=== PATIENT | female | born 1995 | race Hispanic/Latino ===

== ENCOUNTER 2017-02-25 18:36 | Emergency (ER) | payer SELFPAY ==
[2017-02-25 18:43] VITALS: BP 130/71; PULSE 80; RESP 18; TEMP 99.3; O2SAT 99
--- NOTE | 2017-02-25 19:52 | ED PDOC ---
Lower Extremity Pain/Injury Time Seen by Provider: 02/25/17 18:46 Chief Complaint (Nursing): Lower Extremity Problem/Injury Chief Complaint (Provider): foot pain History Per: Patient History/Exam Limitations: no limitations Additional Complaint(s): 21yo F inED for eval of left foot pain x 2 weeks after direct injury against wall now with severe pain worsening with tingling sensation. Past Medical History Reviewed: Historical Data, Nursing Documentation, Vital Signs Vital Signs: Last Vital Signs Temp 99.3 F 02/25/17 18:41 Pulse 80 02/25/17 18:41 Resp 18 02/25/17 18:41 BP 130/71 02/25/17 18:41 Pulse Ox 99 02/25/17 18:41 - Medical History PMH: No Chronic Diseases - Family History Family History: States: No Known Family Hx - Allergies Allergies/Adverse Reactions: Allergies Allergy/AdvReac Type Severity Reaction Status Date / Time honey Allergy SWELLING Verified 02/25/17 18:40 Review of Systems ROS Statement: Except As Marked, All Systems Reviewed And Found Negative Constitutional: Negative for: Fever, Chills Musculoskeletal: Positive for: Foot Pain Physical Exam - Reviewed Nursing Documentation Reviewed: Yes Vital Signs Reviewed: Yes - Physical Exam Appears: Positive for: Well, Non-toxic, No Acute Distress Skin: Positive for: Normal Color, Warm, DRY Cardiovascular/Chest: Positive for: Regular Rate, Rhythm Respiratory: Positive for: CNT, Normal Breath Sounds Extremity: Positive for: Other (left foot: swelling to dorsum tenderness to dorsum good pulses) Neurologic/Psych: Positive for: Alert, Oriented - ECG O2 Sat by Pulse Oximetry: 99 - Radiology X-Ray: Interpreted by Mo X-Ray Interpretation: No Acute Disease Medical Decision Making Medical Decision Making: podiatry consulted. pt opts not to wait for podiatry will f.u as outpt given JESSICA wrap and surgical shoe for support. Disposition - Clinical Impression Clinical Impression: Foot injury - Patient ED Disposition Is Patient to be Admitted: No Counseled Patient/Family Regarding: Studies Performed, Diagnosis, Need For Followup, Rx Given - Disposition Referrals: Podiatry Clinic [Outside] Disposition: Routine/Home Disposition Time: 19:59 Condition: STABLE Instructions: Foot Sprain (ED) - POA Present On Arrival: None
--- NOTE | 2017-02-26 12:32 | RAD ---
PROCEDURE: Left Foot Radiographs. HISTORY: Posttraumatic pain. COMPARISON: None. FINDINGS: BONES: Normal. No fracture. JOINTS: Normal. SOFT TISSUES: Normal. OTHER FINDINGS: None. IMPRESSION: No acute findings related to/accounting for the clinical presentation. Concordant results with the preliminary interpretation rendered by the emergency department physician procedure.
== END 2017-02-25 20:20 | disposition home or self-care (01) ==
LOC: H.ER 18:36
DX: S99.922A Unspecified injury of left foot, initial encounter (principal); W22.01XA Walked into wall, initial encounter; Y93.9 Activity, unspecified